=== PATIENT | female | born 1980 | race African-American/Black ===

== ENCOUNTER 2016-07-01 12:17 | Emergency (ER) | payer MEDICARE, MEDICAID ==
[2016-07-01] MEDS ORDERED: AMOXicillin 250 MG CAP ONE (12:29)
[2016-07-01] MEDS ORDERED: HYDROcodone/Acetaminophen 10/325 mg Tablet ONE (12:29)
== END 2016-07-01 12:32 | disposition home or self-care (01) ==
LOC: BURERS 12:17
DX: K03.81 Cracked tooth (principal); K04.7 Periapical abscess without sinus; J45.909 Unspecified asthma, uncomplicated; F17.210 Nicotine dependence, cigarettes, uncomplicated
CPT/HCPCS: 99282

== ENCOUNTER 2017-04-03 18:08 | Emergency (ER) | payer MEDICAID, MEDICARE ==
[2017-04-03] MEDS ORDERED: AMOXicillin 250 MG CAP ONE (19:20)
[2017-04-03] MEDS ORDERED: Ketorolac Tromethamine 60 MG/2 ML VIAL ONE (19:20)
== END 2017-04-03 19:37 | disposition home or self-care (01) ==
LOC: BURERS 18:08
DX: K02.9 Dental caries, unspecified (principal); J45.909 Unspecified asthma, uncomplicated; F17.210 Nicotine dependence, cigarettes, uncomplicated
CPT/HCPCS: 96372; J1885

== ENCOUNTER 2018-10-15 13:04 | Emergency (ER) | payer MEDICARE, MEDICAID ==
[2018-10-15] MEDS ORDERED: Ondansetron ODT 4 MG TAB ONE (13:28)
[2018-10-15] MEDS ORDERED: Mag-Al Plus 1200 MG/1200 MG/120 MG/30 ML UDCUP ONE (13:29)
[2018-10-15] MEDS ORDERED: Lidocaine Viscous Sol 2% 15 ml UD Cup ONE (13:29)
== END 2018-10-15 14:04 | disposition home or self-care (01) ==
LOC: BURERS 13:04
DX: K29.00 Acute gastritis without bleeding (principal); Z71.6 Tobacco abuse counseling; J45.909 Unspecified asthma, uncomplicated; F17.210 Nicotine dependence, cigarettes, uncomplicated; Z79.51 Long term (current) use of inhaled steroids
CPT/HCPCS: 99406; Q0162

== ENCOUNTER 2018-10-26 15:18 | Emergency (ER) | payer MEDICARE, MEDICAID | END 2018-10-26 15:30 | disposition home or self-care (01) | LOC: BURERS 15:18 | DX: K04.7 Periapical abscess without sinus (principal); J45.909 Unspecified asthma, uncomplicated; F17.210 Nicotine dependence, cigarettes, uncomplicated | CPT/HCPCS: 99282 ==

== ENCOUNTER 2020-08-03 19:39 | Emergency (ER) | payer MEDICARE, MEDICAID ==
[2020-08-03] MEDS ORDERED: Acetaminophen 500 MG TAB ONE (19:53)
== END 2020-08-03 20:02 | disposition home or self-care (01) ==
LOC: BURERS 19:39
DX: T63.2X1A Toxic effect of venom of scorpion, accidental (unintentional), initial encounter (principal)
CPT/HCPCS: 99282

== ENCOUNTER 2020-12-18 13:07 | Emergency (ER) | payer MEDICARE, MEDICAID ==
[2020-12-18] MEDS ORDERED: Ibuprofen 800 MG TAB ONE (13:25)
[2020-12-18] MEDS ORDERED: traMADol HCl 50 MG TAB ONE (13:25)
[2020-12-18] MEDS ORDERED: Ondansetron ODT 4 MG TAB ONE (13:26)
== END 2020-12-18 14:05 | disposition home or self-care (01) ==
LOC: BURERS 13:07
DX: S93.401A Sprain of unspecified ligament of right ankle, initial encounter (principal); X50.0XXA Overexertion from strenuous movement or load, initial encounter; I10 Essential (primary) hypertension; Z79.899 Other long term (current) drug therapy
CPT/HCPCS: Q0162

== ENCOUNTER 2021-11-22 13:06 | Emergency (ER) | payer MEDICARE, MEDICAID | END 2021-11-22 14:25 | disposition home or self-care (01) | LOC: BURERS 13:06 | DX: J10.1 Influenza due to other identified influenza virus with other respiratory manifestations (principal); I10 Essential (primary) hypertension | CPT/HCPCS: 87804; 99283 ==

== ENCOUNTER 2021-12-15 17:09 | Outpatient (CLI) | payer MEDICARE, MEDICAID | END 2021-12-15 17:10 | disposition home or self-care (01) | LOC: BURRAD 17:09 | PROVIDERS: ATTEND Nurse Practitioner Family | DX: S69.92XA Unspecified injury of left wrist, hand and finger(s), initial encounter (principal) ==

== ENCOUNTER 2023-12-12 08:06 | Emergency (ER) | payer MEDICARE, MEDICAID ==
[2023-12-12] MEDS ORDERED: Ibuprofen 800 MG TAB ONE (08:52)
== END 2023-12-12 09:07 | disposition home or self-care (01) ==
LOC: BURERS 08:06
DX: M43.6 Torticollis (principal); I10 Essential (primary) hypertension; F17.290 Nicotine dependence, other tobacco product, uncomplicated
CPT/HCPCS: 99283

== ENCOUNTER 2024-09-09 20:09 | Emergency (ER) | payer MEDICARE, MEDICAID ==
[2024-09-09 20:58] LABS: Glucose, Urine (Dipstick) Negative (Negative); Leukocyte Large (Negative); Protein, Urine (Dipstick) 30 mg/dL (Neg-Trace); Specific Gravity, Urine 1.020 (1.005-1.030)
[2024-09-09 21:05] LABS: CAUTI Indications for Culture Alt mental st,lethar; RBC/HPF 0-3 HPF (0-3); WBC/HPF Greater Than 50 HPF (0-3)
[2024-09-09 21:06] LABS: Bacteria/HPF 2+ HPF (None Seen); Mucous/LPF 1+ LPF (<2+); Trichomonas/HPF 1+ HPF (None Seen)
[2024-09-09 21:07] LABS: Urine Culture Reflex Yes Yes
[2024-09-09] MEDS ORDERED: cefTRIAXone (ROCEPHIN) 500 MG VIAL ONE (22:10)
[2024-09-10 15:23] LABS: Chlam.trachomatis by PCR,Urine Not Detected (NotDetected); GC N.gonorrhoeae PCR,UrineVOID Not Detected (NotDetected)
== END 2024-09-09 22:35 | disposition home or self-care (01) ==
LOC: BURERS 20:09
DX: A59.01 Trichomonal vulvovaginitis (principal); I10 Essential (primary) hypertension; E78.5 Hyperlipidemia, unspecified; J45.909 Unspecified asthma, uncomplicated; F17.290 Nicotine dependence, other tobacco product, uncomplicated; Z79.899 Other long term (current) drug therapy; Z79.51 Long term (current) use of inhaled steroids
CPT/HCPCS: 81001; 87086; 87480; 87491; 87510; 87591; 87660; J0696; 96372; 99283

== ENCOUNTER 2024-11-30 12:59 | Emergency (ER) | payer MEDICARE, MEDICAID ==
[2024-11-30 14:25] LABS: ALT (SGPT) 13 U/L (Less than 34); AST (SGOT) 22 U/L (11-34); Albumin 4.3 g/dL (3.1-4.5); Alkaline Phosphatase 65 U/L (40-110); Anion Gap 15 mmol/L (10-20); BUN (Urea Nitrogen) 7 mg/dL (7.0-18.7); Bilirubin, Total 0.3 mg/dL (0.3-1.2); Calc. Creatinine Clearance 0 mL/min (70-130); Calcium 9.5 mg/dL (7.8-10.44); Carbon Dioxide 24 mmol/L (22-29); Chloride 106 mmol/L (98-107); Globulin 3.2 g/dL (2.4-3.5); Glucose 77 mg/dL (70-105); Magnesium 2.0 mg/dL (1.6-2.6); Potassium 3.5 mmol/L (3.5-5.1); Sodium 141 mmol/L (136-145)
[2024-11-30 14:35] LABS: Hematocrit 36.1 % (36.0-47.0); Hemoglobin 13.1 g/dL (12.0-16.0); Mean Corpuscular Hemoglobin 30.4 pg (27.0-31.0); Mean Corpuscular Volume 83.7 fl (78.0-98.0); Platelet Count 221 10x3/uL (130-400); Red Blood Cell (RBC) Count 4.32 mill/uL (4.20-5.40); White Blood Cell (WBC) Count 6.7 10x3/uL (4.8-10.8)
[2024-11-30 14:42] LABS: MDiff Complete? YES; Platelet Adequacy Comment Appears Adequate
== END 2024-11-30 15:10 | disposition home or self-care (01) ==
LOC: BURERS 12:59
DX: H81.399 Other peripheral vertigo, unspecified ear (principal); N17.9 Acute kidney failure, unspecified; N18.9 Chronic kidney disease, unspecified; H65.93 Unspecified nonsuppurative otitis media, bilateral; R29.700 NIHSS score 0; I10 Essential (primary) hypertension; E78.00 Pure hypercholesterolemia, unspecified; Z79.899 Other long term (current) drug therapy
CPT/HCPCS: 36415; 80053; 83735; 84443; 85025; 99284

== ENCOUNTER 2024-12-15 18:02 | Emergency (ER) | payer MEDICARE, MEDICAID ==
[2024-12-15] MEDS ORDERED: Amoxicillin/Potassium Clav 875 MG TAB ONE (18:19)
== END 2024-12-15 18:40 | disposition home or self-care (01) ==
LOC: BURERS 18:02
DX: K02.9 Dental caries, unspecified (principal); K08.89 Other specified disorders of teeth and supporting structures; I10 Essential (primary) hypertension; E78.00 Pure hypercholesterolemia, unspecified; J45.909 Unspecified asthma, uncomplicated
CPT/HCPCS: 99283